=== PATIENT | male | born 2000 | race Two or more races ===

== ENCOUNTER 2023-10-04 19:30 | Inpatient (IN) | payer OTHER ==
[2023-10-04 20:45] VITALS: BMI 23.7
[2023-10-04] MEDS ORDERED: NALOXONE HCL 0.4 MG/ML VIAL IM PRN (23:06)
[2023-10-04] MEDS ORDERED: NICOTINE POLACRILEX 2 MG GUM BUC PRN (23:06)
[2023-10-04] MEDS ORDERED: BENZONATATE 200 MG CAPSULE PO PRN (23:06)
[2023-10-04] MEDS ORDERED: hydrOXYzine PAMOATE 25 MG CAPSULE (FP) PO PRN (23:06)
[2023-10-04] MEDS ORDERED: MAGNESIUM HYDROX 2400MG/30ML ORAL SUSPENSION 30 ML CUP PO PRN (23:06)
[2023-10-04] MEDS ORDERED: NALOXONE (NARCAN) HCL 4 MG/0.1 ML SPRAY NS PRN (23:06)
[2023-10-04] MEDS ORDERED: BISMUTH SUBSALICYLATE 524 MG/30 ML PO PRN (23:06)
[2023-10-04] MEDS ORDERED: BENZOCAINE/MENTHOL (CHLORASEPTIC ) LOZENGE MM PRN (23:06)
[2023-10-04] MEDS ORDERED: DICYCLOMINE HCL 10 MG CAPSULE PO PRN (23:06)
[2023-10-04] MEDS ORDERED: ONDANSETRON *ODT* 4 MG TABLET SL PRN (23:06)
[2023-10-04] MEDS ORDERED: MAG HYDROX/AL HYDROX/SIMETH 30 ML UNIT-DOSE CUP PO PRN (23:06)
[2023-10-04] MEDS ORDERED: ACETAMINOPHEN 325 MG TABLET (FP) PO PRN (23:06)
[2023-10-04] MEDS ORDERED: IBUPROFEN 400 MG TABLET (FP) PO PRN (23:06)
[2023-10-04] MEDS ORDERED: POLYETHYLENE GLYCOL (HEALTHYLAX) 3350 17 GM PACKET PO PRN (23:06)
[2023-10-04] MEDS ORDERED: IBUPROFEN 600 MG TABLET (FP) PO PRN (23:06)
[2023-10-04] MEDS ORDERED: guaiFENesin 600 MG TABLET.ER (FP) PO PRN (23:06)
[2023-10-04] MEDS ORDERED: METHOCARBAMOL 500 MG TABLET PO PRN (23:06)
[2023-10-04] MEDS ORDERED: diazePAM 5 MG TABLET PO PRN (23:11)
[2023-10-04] MEDS: LOPERAMIDE HCL 2 MG CAPSULE PO PRN (23:40)
[2023-10-04] MEDS ORDERED: methaDONE HCL 10 MG TABLET (FOR DETOX USE ONLY) ONE (23:42)
[2023-10-04] MEDS ORDERED: diazePAM 5 MG TABLET ONE (23:42)
[2023-10-05] MEDS: diazePAM 5 MG TABLET PO SCH
[2023-10-05] MEDS: methaDONE HCL 10 MG TABLET (FOR DETOX USE ONLY) PO ONE (00:01)
[2023-10-05] MEDS: PRENATAL VITAMINS W/ FOLIC ACID TABLET (FP) PO SCH (09:57)
[2023-10-05] MEDS: NICOTINE 21 MG/24 HOURS TOPICAL PATCH TD SCH (09:58)
[2023-10-05 11:47] LABS: HEMATOCRIT 36.7 % (35.4-49); MCH 25.2 pg (25.7-33.7); MCHC 32.8 g/dl (32.0-35.9); MEAN CELL VOLUME 76.7 fl (80-96); MEAN PLT VOLUME 8.6 fl (7.5-11.1); PLATELET COUNT 317 10^3/uL (134-434); RBC 4.78 M/mm3 (4.00-5.60); RDW 15.6 % (11.9-15.9); WHITE BLOOD COUNT 12.8 K/mm3 (4.0-10.0)
[2023-10-05 13:51] LABS: CHLORIDE 103 mmol/L (98-107); POTASSIUM 3.8 mmol/L (3.5-5.1); SODIUM 138 mmol/L (136-145)
[2023-10-05 13:53] LABS: CALCIUM 9.5 mg/dL (8.5-10.1)
[2023-10-05 13:54] LABS: ALBUMIN 4.3 g/dl (3.4-5.0); BLOOD UREA NITROGEN 16.8 mg/dL (7-18); GLUCOSE,RANDOM 88 mg/dL (74-106)
[2023-10-05 13:55] LABS: CO2 28 mmol/L (21-32)
[2023-10-05 13:57] LABS: CREATININE 0.9 mg/dL (0.55-1.3); SGOT/AST 16 U/L (15-37); SGPT/ALT 17 U/L (13-61)
[2023-10-05 13:59] LABS: BILIRUBIN,TOTAL 0.6 mg/dL (0.2-1)
[2023-10-05 14:00] LABS: ALK PHOS 113 U/L (45-117)
[2023-10-05] MEDS: cloNIDine HCL 0.1 MG TABLET PO PRN (14:47)
[2023-10-05] MEDS: MELATONIN 5 MG TABLETS PO SCH (22:47)
[2023-10-05] MEDS: THIAMINE 100 MG TABLET PO SCH (22:47)
[2023-10-06] MEDS: diazePAM 5 MG TABLET PO SCH (05:58)
[2023-10-06] MEDS: methaDONE HCL 10 MG TABLET (FOR DETOX USE ONLY) PO ONE ×2 (12:13→12:41)
[2023-10-07] MEDS: diazePAM 5 MG TABLET PO SCH (05:45)
[2023-10-07 14:17] LABS: HEMATOCRIT 38.4 % (35.4-49); HEMOGLOBIN 12.5 GM/dL (11.7-16.9); MCH 25.1 pg (25.7-33.7); MCHC 32.7 g/dl (32.0-35.9); MEAN CELL VOLUME 76.7 fl (80-96); MEAN PLT VOLUME 8.5 fl (7.5-11.1); PLATELET COUNT 312 10^3/uL (134-434); WHITE BLOOD COUNT 9.2 K/mm3 (4.0-10.0)
[2023-10-08 06:59] VITALS: RESP 16
[2023-10-08 08:52] VITALS: BP 134/80; PULSE 78; TEMP 97.3
[2023-10-08] MEDS: diazePAM 5 MG TABLET PO ONE ×2 (09:02)
[2023-10-08] MEDS: methaDONE HCL 10 MG TABLET (FOR DETOX USE ONLY) PO ONE (10:00)
== END 2023-10-08 10:46 | disposition home or self-care (01) | DRG 773 ==
LOC: YASAS 19:30 → Y6N 23:03
PROVIDERS: ADMIT Allergy & Immunology; ATTEND Surgery
PROC: HZ2ZZZZ Detoxification Services for Substance Abuse Treatment (ICD-10-PCS; principal; 2023-10-04)
DX: F11.23 Opioid dependence with withdrawal (principal); F13.230 Sedative, hypnotic or anxiolytic dependence with withdrawal, uncomplicated; F12.20 Cannabis dependence, uncomplicated; F17.210 Nicotine dependence, cigarettes, uncomplicated; F31.9 Bipolar disorder, unspecified; F41.9 Anxiety disorder, unspecified; D72.829 Elevated white blood cell count, unspecified
CPT/HCPCS: 36415; 80053; 80305; 80307; 85027; 86780; 93005; 93010

== ENCOUNTER 2024-04-08 18:05 | Inpatient (IN) | payer OTHER ==
[2024-04-08 18:21] VITALS: BMI 21.3
[2024-04-08] MEDS ORDERED: MAGNESIUM HYDROX 2400MG/30ML ORAL SUSPENSION 30 ML CUP PO PRN (18:46)
[2024-04-08] MEDS ORDERED: BISMUTH SUBSALICYLATE 524 MG/30 ML PO PRN (18:46)
[2024-04-08] MEDS ORDERED: DICYCLOMINE HCL 10 MG CAPSULE PO PRN (18:46)
[2024-04-08] MEDS ORDERED: ACETAMINOPHEN 325 MG TABLET (FP) PO PRN (18:46)
[2024-04-08] MEDS ORDERED: POLYETHYLENE GLYCOL (HEALTHYLAX) 3350 17 GM PACKET PO PRN (18:46)
[2024-04-08] MEDS ORDERED: IBUPROFEN 400 MG TABLET (FP) PO PRN (18:46)
[2024-04-08] MEDS ORDERED: LOPERAMIDE HCL 2 MG CAPSULE PO PRN (18:46)
[2024-04-08] MEDS ORDERED: NALOXONE (NARCAN) HCL 4 MG/0.1 ML SPRAY NS PRN (18:46)
[2024-04-08] MEDS ORDERED: IBUPROFEN 600 MG TABLET (FP) PO PRN (18:46)
[2024-04-08] MEDS ORDERED: ONDANSETRON *ODT* 4 MG TABLET SL PRN (18:46)
[2024-04-08] MEDS ORDERED: guaiFENesin 600 MG TABLET.ER (FP) PO PRN (18:46)
[2024-04-08] MEDS ORDERED: BENZOCAINE/MENTHOL (CHLORASEPTIC ) LOZENGE MM PRN (18:46)
[2024-04-08] MEDS ORDERED: BENZONATATE 200 MG CAPSULE PO PRN (18:46)
[2024-04-08] MEDS ORDERED: MAG HYDROX/AL HYDROX/SIMETH 30 ML UNIT-DOSE CUP PO PRN (18:46)
[2024-04-08] MEDS: THIAMINE 100 MG TABLET PO SCH (21:07)
[2024-04-08] MEDS: hydrOXYzine PAMOATE 25 MG CAPSULE (FP) PO PRN (21:07)
[2024-04-08] MEDS: MELATONIN 5 MG TABLETS PO SCH (21:08)
[2024-04-09] MEDS: METHOCARBAMOL 500 MG TABLET PO PRN (10:06)
[2024-04-09] MEDS: PRENATAL VITAMINS W/ FOLIC ACID TABLET (FP) PO SCH (10:06)
[2024-04-09] MEDS ORDERED: diazePAM 5 MG TABLET PO PRN ×2 (10:40)
[2024-04-09] MEDS ORDERED: BUPRENORPHINE HCL 150 MCG, BUPRENORPHINE HCL 75 MCG BC PRN (10:40)
[2024-04-09] MEDS: cloNIDine HCL 0.1 MG TABLET PO ONE (11:20)
[2024-04-09] MEDS: diazePAM 5 MG TABLET PO SCH (11:20)
[2024-04-09] MEDS: BUPRENORPHINE HCL 150 MCG, BUPRENORPHINE HCL 75 MCG BC ONE (11:21)
[2024-04-09 12:11] LABS: HEMATOCRIT 40.7 % (35.4-49); HEMOGLOBIN 13.2 GM/dL (11.7-16.9); MCH 25.3 pg (25.7-33.7); MCHC 32.4 g/dl (32.0-35.9); MEAN CELL VOLUME 78.1 fl (80-96); PLATELET COUNT 297 10^3/uL (134-434)
[2024-04-09 12:36] LABS: CHLORIDE 109 mmol/L (98-107); POTASSIUM 4.3 mmol/L (3.5-5.1); SODIUM 142 mmol/L (136-145)
[2024-04-09 12:50] LABS: SGPT/ALT 20 U/L (13-61)
[2024-04-09 12:52] LABS: ALBUMIN 3.8 g/dl (3.4-5.0); ALK PHOS 129 U/L (45-117); ANION GAP 6 mmol/L (4-13); BILIRUBIN,TOTAL 0.6 mg/dL (0.2-1); BLOOD UREA NITROGEN 8.5 mg/dL (7-18); CALCIUM 9.6 mg/dL (8.5-10.1); CO2 27 mmol/L (21-32); GLUCOSE,RANDOM 100 mg/dL (74-106); SGOT/AST 14 U/L (15-37); TOT PROT 7.6 g/dl (6.4-8.2)
[2024-04-09 12:55] LABS: CREATININE 0.9 mg/dL (0.55-1.3)
[2024-04-09] MEDS ORDERED: cloNIDine HCL 0.1 MG TABLET PO PRN (14:41)
[2024-04-10] MEDS ORDERED: BUPRENORPHINE HCL 150 MCG, BUPRENORPHINE HCL 75 MCG BC PRN
[2024-04-10] MEDS: BUPRENORPHINE HCL 150 MCG, BUPRENORPHINE HCL 75 MCG BC SCH (05:36)
[2024-04-10 08:37] VITALS: BP 121/69; PULSE 81; RESP 18; TEMP 98.4
[2024-04-10] MEDS: NALOXONE (NYS OPIOID OVERDOSE PROGRAM) 4 MG/0.1 ML SPRAY NS SCH (10:10)
[2024-04-10] MEDS: BUPRENORPHINE HCL 450 MCG FILM BC SCH (10:12)
[2024-04-11] MEDS ORDERED: BUPRENORPHINE HCL 450 MCG FILM BC SCH (06:00)
[2024-04-11] MEDS ORDERED: diazePAM 5 MG TABLET PO SCH (06:00)
[2024-04-12] MEDS ORDERED: diazePAM 5 MG TABLET PO SCH (06:00)
[2024-04-12] MEDS ORDERED: BUPRENORPHINE/NALOXONE 4 MG/1 MG FILM PACKET SL SCH (06:00)
[2024-04-13] MEDS ORDERED: BUPRENORPHINE/NALOXONE 8 MG/2 MG FILM PACKET SL ONE (06:00)
[2024-04-13] MEDS ORDERED: diazePAM 5 MG TABLET PO ONE (06:00)
== END 2024-04-10 10:10 | disposition left against medical advice (07) | DRG 770 ==
LOC: YASAS 18:05 → Y6N 19:09
PROVIDERS: ADMIT Allergy & Immunology; ATTEND Allergy & Immunology
PROC: HZ2ZZZZ Detoxification Services for Substance Abuse Treatment (ICD-10-PCS; principal; 2024-04-08)
DX: F11.23 Opioid dependence with withdrawal (principal); F13.230 Sedative, hypnotic or anxiolytic dependence with withdrawal, uncomplicated; F12.20 Cannabis dependence, uncomplicated; F17.210 Nicotine dependence, cigarettes, uncomplicated; F19.280 Other psychoactive substance dependence with psychoactive substance-induced anxiety disorder; F19.282 Other psychoactive substance dependence with psychoactive substance-induced sleep disorder; F31.9 Bipolar disorder, unspecified; G40.909 Epilepsy, unspecified, not intractable, without status epilepticus; Z91.410 Personal history of adult physical and sexual abuse; Z63.0 Problems in relationship with spouse or partner
CPT/HCPCS: 36415; 80053; 80305; 80307; 85027; 86780; 93005; 93010

== ENCOUNTER 2024-09-03 21:33 | Inpatient (IN) | payer OTHER ==
[2024-09-03 22:27] VITALS: BMI 22.8
[2024-09-03] MEDS ORDERED: MAG HYDROX/AL HYDROX/SIMETH 30 ML UNIT-DOSE CUP PO PRN (23:14)
[2024-09-03] MEDS ORDERED: ACETAMINOPHEN 325 MG TABLET (FP) PO PRN (23:14)
[2024-09-03] MEDS ORDERED: ONDANSETRON *ODT* 4 MG TABLET SL PRN (23:14)
[2024-09-03] MEDS ORDERED: hydrOXYzine PAMOATE 25 MG CAPSULE (FP) PO PRN (23:14)
[2024-09-03] MEDS ORDERED: IBUPROFEN 400 MG TABLET (FP) PO PRN (23:14)
[2024-09-03] MEDS ORDERED: MAGNESIUM HYDROX 2400MG/30ML ORAL SUSPENSION 30 ML CUP PO PRN (23:14)
[2024-09-03] MEDS ORDERED: BENZOCAINE/MENTHOL (CHLORASEPTIC ) LOZENGE MM PRN (23:14)
[2024-09-03] MEDS ORDERED: BISMUTH SUBSALICYLATE 524 MG/30 ML PO PRN (23:14)
[2024-09-03] MEDS ORDERED: DICYCLOMINE HCL 10 MG CAPSULE PO PRN (23:14)
[2024-09-03] MEDS ORDERED: LOPERAMIDE HCL 2 MG CAPSULE PO PRN (23:14)
[2024-09-03] MEDS ORDERED: NALOXONE (NARCAN) HCL 4 MG/0.1 ML SPRAY NS PRN (23:14)
[2024-09-03] MEDS ORDERED: METHOCARBAMOL 500 MG TABLET PO PRN (23:14)
[2024-09-03] MEDS ORDERED: NICOTINE POLACRILEX 2 MG GUM BUC PRN (23:14)
[2024-09-03] MEDS ORDERED: BENZONATATE 200 MG CAPSULE PO PRN (23:14)
[2024-09-03] MEDS ORDERED: POLYETHYLENE GLYCOL (HEALTHYLAX) 3350 17 GM PACKET PO PRN (23:14)
[2024-09-03] MEDS ORDERED: guaiFENesin 600 MG TABLET.ER (FP) PO PRN (23:14)
[2024-09-04] MEDS ORDERED: levETIRAcetam 500 MG TABLET (FP) PO ONE (01:37)
[2024-09-04] MEDS: levETIRAcetam 500 MG TABLET (FP) PO SCH (01:38)
[2024-09-04] MEDS ORDERED: methaDONE HCL 10 MG TABLET (FOR DETOX USE ONLY) PO PRN (08:35)
[2024-09-04] MEDS: PRENATAL VITAMINS W/ FOLIC ACID TABLET (FP) PO SCH (09:26)
[2024-09-04] MEDS: cloNIDine HCL 0.1 MG TABLET PO SCH (09:26)
[2024-09-04] MEDS: methaDONE HCL 10 MG TABLET (FOR DETOX USE ONLY) PO ONE (09:27)
[2024-09-04] MEDS: BUPRENORPHINE/NALOXONE 0.5 MG/0.125 MG FILM SL ONE ×2 (09:28→23:05)
[2024-09-04] MEDS: NICOTINE 14 MG/24 HOURS TOPICAL PATCH TD SCH (09:31)
[2024-09-04 11:32] LABS: HEMATOCRIT 39.1 % (40.1-51.0); HEMOGLOBIN 12.2 g/dL (13.7-17.5); MCHC 31.2 g/dl (32.3-36.5); MEAN PLT VOLUME 10.9 fl (9.4-12.4); PLATELET COUNT 297 x10^3/uL (163-337); RDW 15.8 % (11.9-15.3)
[2024-09-04 11:34] LABS: CHLORIDE 105 mmol/L (98-107); POTASSIUM 3.6 mmol/L (3.5-5.1); SODIUM 140 mmol/L (136-145)
[2024-09-04 11:49] LABS: CALCIUM 9.6 mg/dL (8.5-10.1)
[2024-09-04 11:50] LABS: ANION GAP 8 mmol/L (4-13); CO2 27 mmol/L (21-32); GLUCOSE,RANDOM 93 mg/dL (74-106)
[2024-09-04 11:52] LABS: SGOT/AST 12 U/L (15-37); SGPT/ALT 20 U/L (13-61)
[2024-09-04 11:54] LABS: BILIRUBIN,TOTAL 0.7 mg/dL (0.2-1); TOT PROT 7.5 g/dl (6.4-8.2)
[2024-09-04 11:55] LABS: ALK PHOS 124 U/L (45-117)
[2024-09-04] MEDS: IBUPROFEN 600 MG TABLET (FP) PO PRN (17:26)
[2024-09-04] MEDS: MELATONIN 5 MG TABLETS PO SCH (22:50)
[2024-09-04] MEDS: THIAMINE 100 MG TABLET PO SCH (22:50)
[2024-09-05] MEDS ORDERED: levETIRAcetam 250 MG TABLET PO ONE (10:38)
[2024-09-05] MEDS: BUPRENORPHINE/NALOXONE 0.5 MG/0.125 MG FILM SL SCH (10:39)
[2024-09-05 14:33] VITALS: RESP 16
[2024-09-06 06:54] VITALS: PULSE 60
[2024-09-06 08:44] VITALS: BP 117/61; TEMP 97.6
[2024-09-06] MEDS: BUPRENORPHINE/NALOXONE 2 MG/0.5 MG FILM PACKET SL SCH (09:31)
[2024-09-06] MEDS ORDERED: methaDONE HCL 10 MG TABLET (FOR DETOX USE ONLY) PO ONE (10:00)
[2024-09-07] MEDS ORDERED: BUPRENORPHINE/NALOXONE 4 MG/1 MG FILM PACKET SL SCH (10:00)
[2024-09-08] MEDS ORDERED: methaDONE HCL 10 MG TABLET (FOR DETOX USE ONLY) PO ONE (10:00)
[2024-09-08] MEDS ORDERED: BUPRENORPHINE/NALOXONE 8 MG/2 MG FILM PACKET SL SCH (10:00)
[2024-09-09] MEDS ORDERED: BUPRENORPHINE/NALOXONE 8 MG/2 MG FILM PACKET SL SCH (10:00)
== END 2024-09-06 11:59 | disposition home or self-care (01) | DRG 773 ==
LOC: YASAS 21:33 → Y6N 23:55
PROVIDERS: ADMIT Family Medicine; ATTEND Family Medicine
PROC: HZ2ZZZZ Detoxification Services for Substance Abuse Treatment (ICD-10-PCS; principal; 2024-09-03)
DX: F11.23 Opioid dependence with withdrawal (principal); F13.20 Sedative, hypnotic or anxiolytic dependence, uncomplicated; F12.20 Cannabis dependence, uncomplicated; F19.280 Other psychoactive substance dependence with psychoactive substance-induced anxiety disorder; F19.282 Other psychoactive substance dependence with psychoactive substance-induced sleep disorder; F63.81 Intermittent explosive disorder; G40.909 Epilepsy, unspecified, not intractable, without status epilepticus; Z87.891 Personal history of nicotine dependence
CPT/HCPCS: 36415; 80053; 80305; 80307; 85027; 86780; 93005; 93010

== ENCOUNTER 2024-11-17 21:17 | Inpatient (IN) | payer OTHER ==
[2024-11-17 22:41] VITALS: BMI 25.5
[2024-11-17] MEDS ORDERED: MAGNESIUM HYDROX 2400MG/30ML ORAL SUSPENSION 30 ML CUP PO PRN (22:55)
[2024-11-17] MEDS ORDERED: IBUPROFEN 400 MG TABLET (FP) PO PRN (22:55)
[2024-11-17] MEDS ORDERED: NALOXONE (NARCAN) HCL 4 MG/0.1 ML SPRAY NS PRN (22:55)
[2024-11-17] MEDS ORDERED: NICOTINE POLACRILEX 2 MG GUM BUC PRN (22:55)
[2024-11-17] MEDS ORDERED: BENZOCAINE/MENTHOL (CHLORASEPTIC ) LOZENGE MM PRN (22:55)
[2024-11-17] MEDS ORDERED: BENZONATATE 200 MG CAPSULE PO PRN (22:55)
[2024-11-17] MEDS ORDERED: ONDANSETRON *ODT* 4 MG TABLET SL PRN (22:55)
[2024-11-17] MEDS ORDERED: METHOCARBAMOL 500 MG TABLET PO PRN (22:55)
[2024-11-17] MEDS ORDERED: BISMUTH SUBSALICYLATE 524 MG/30 ML PO PRN (22:55)
[2024-11-17] MEDS ORDERED: NICOTINE POLACRILEX 2 MG LOZENGE BC PRN (22:55)
[2024-11-17] MEDS ORDERED: IBUPROFEN 600 MG TABLET (FP) PO PRN (22:55)
[2024-11-17] MEDS ORDERED: LOPERAMIDE HCL 2 MG CAPSULE PO PRN (22:55)
[2024-11-17] MEDS ORDERED: POLYETHYLENE GLYCOL (HEALTHYLAX) 3350 17 GM PACKET PO PRN (22:55)
[2024-11-17] MEDS ORDERED: DICYCLOMINE HCL 10 MG CAPSULE PO PRN (22:55)
[2024-11-17] MEDS ORDERED: ACETAMINOPHEN 325 MG TABLET (FP) PO PRN (22:55)
[2024-11-17] MEDS ORDERED: guaiFENesin 600 MG TABLET.ER (FP) PO PRN (22:55)
[2024-11-17] MEDS ORDERED: MAG HYDROX/AL HYDROX/SIMETH 30 ML UNIT-DOSE CUP PO PRN (22:55)
[2024-11-18 09:17] LABS: MCHC 31.4 g/dl (32.3-36.5); MEAN CELL VOLUME 77.0 fl (79.0-92.2); MEAN PLT VOLUME 10.3 fl (9.4-12.4); RDW 14.8 % (11.9-15.3)
[2024-11-18 09:25] LABS: GLUCOSE,RANDOM 98.0 mg/dL (74-106); TOT PROT 8.6 g/dl (6.4-8.2)
[2024-11-18 09:26] LABS: CO2 22.0 mmol/L (21-32)
[2024-11-18 09:28] LABS: ALK PHOS 90.0 U/L (40-150)
[2024-11-18 09:31] LABS: CREATININE 0.97 mg/dL (0.55-1.3); SGOT/AST 15.0 U/L (5-34); SGPT/ALT 9.0 U/L (0-55)
[2024-11-18] MEDS: PRENATAL VITAMINS W/ FOLIC ACID TABLET (FP) PO SCH (10:17)
[2024-11-18] MEDS: POTASSIUM CHLORIDE ORAL LIQUID 20 MEQ/15 ML PO ONE (18:25)
[2024-11-18] MEDS ORDERED: MELATONIN 5 MG TABLETS PO SCH (22:00)
[2024-11-18] MEDS: THIAMINE 100 MG TABLET PO SCH (22:11)
[2024-11-18] MEDS: MELATONIN 5 MG TABLETS PO SCH (22:11)
[2024-11-19] MEDS: hydrOXYzine PAMOATE 25 MG CAPSULE (FP) PO PRN (05:26)
[2024-11-19 09:34] VITALS: BP 117/62; PULSE 65; RESP 14; TEMP 97.4
== END 2024-11-19 11:20 | disposition home or self-care (01) | DRG 773 ==
LOC: YASAS 21:17 → Y3N 23:24
PROVIDERS: ADMIT Allergy & Immunology; ATTEND Allergy & Immunology
PROC: HZ2ZZZZ Detoxification Services for Substance Abuse Treatment (ICD-10-PCS; principal; 2024-11-17)
DX: F11.20 Opioid dependence, uncomplicated (principal); F12.20 Cannabis dependence, uncomplicated; F17.210 Nicotine dependence, cigarettes, uncomplicated; F19.282 Other psychoactive substance dependence with psychoactive substance-induced sleep disorder; F19.280 Other psychoactive substance dependence with psychoactive substance-induced anxiety disorder; F19.24 Other psychoactive substance dependence with psychoactive substance-induced mood disorder; F63.81 Intermittent explosive disorder; G40.909 Epilepsy, unspecified, not intractable, without status epilepticus
CPT/HCPCS: 36415; 80053; 84132; 85027; 86780